=== PATIENT | female | born 1980 | race Hispanic/Latino ===

== ENCOUNTER 2019-12-18 18:45 | Emergency (ER) | payer SELFPAY ==
[2019-12-18 18:52] VITALS: BP 154/99
--- NOTE | 2019-12-19 06:06 | XRay Report ---
Chest single view INDICATION: Dyspnea IMPRESSION: Patchy ill-defined airspace density projects over the right mid and right lower lung. The left lung is clear. Signer Name: Clint Anderson MD Signed: 12/19/2019 6:02 AM Workstation Name: [id number]
[2019-12-19 06:12] LABS: Basophils # (Auto) 0.1 K/mm3 (0.0-0.1); Basophils % (Auto) 1.1 % (0.0-1.8); Eosinophils # (Auto) 0.1 K/mm3 (0.0-0.4); Eosinophils % (Auto) 1.7 % (0.0-4.3); Hematocrit 35.9 % (30.3-42.9); Hemoglobin 11.6 gm/dl (10.1-14.3); Lymphocytes # (Auto) 2.3 K/mm3 (1.2-5.4); Lymphocytes % (Auto) 38.3 % (13.4-35.0); Mean Corpuscular HGB Conc 32 % (30-34); Mean Corpuscular Volume 83 fl (79-97); Monocytes # (Auto) 0.6 K/mm3 (0.0-0.8); Monocytes % (Auto) 9.7 % (0.0-7.3); Red Blood Count 4.36 M/mm3 (3.65-5.03); Red Cell Distribution Width 19.1 % (13.2-15.2)
[2019-12-19 06:17] LABS: Platelet Count 98 K/mm3 (140-440)
[2019-12-19 06:30] LABS: Blood Urea Nitrogen 5 mg/dL (7-17); Calcium 8.7 mg/dL (8.4-10.2); Hemolysis Index 5
[2019-12-19 06:41] LABS: BUN/Creatinine Ratio 13
== END 2019-12-18 23:00 | disposition left against medical advice (07) ==
LOC: ED 18:45
DX: R07.89 Other chest pain (principal); Z53.21 Procedure and treatment not carried out due to patient leaving prior to being seen by health care provider
CPT/HCPCS: 36415; 80048; 80320; 84484; 85025; G0480

== ENCOUNTER 2019-12-19 05:34 | Emergency (ER) | payer SELFPAY ==
[2019-12-19 05:48] VITALS: BP 150/97
== END 2019-12-19 07:00 | disposition left against medical advice (07) ==
LOC: ED 05:34
DX: R07.9 Chest pain, unspecified (principal); Z53.21 Procedure and treatment not carried out due to patient leaving prior to being seen by health care provider